=== PATIENT | female | born 1965 | race Caucasian/White ===

== ENCOUNTER 2023-06-27 20:47 | Emergency (ER) | payer OTHER ==
[2023-06-27 21:10] VITALS: BP 148/70
[2023-06-27] MEDS ORDERED: Rabies Vaccine (Avian) 2.5 Unit Inj Kit IM ONE (21:31)
[2023-06-27] MEDS ORDERED: Rabies Immune Globulin/PF (HyperRAB) 300 UNIT/ML 5 ML SDV IM ONE (21:36)
[2023-06-27 22:40] VITALS: PULSE 70
== END 2023-06-27 22:39 | disposition home or self-care (01) ==
LOC: JD.ED 20:47
DX: S71.151S Open bite, right thigh, sequela (principal); Z23 Encounter for immunization; W54.0XXS Bitten by dog, sequela
CPT/HCPCS: 90375; 90471; 90675; 96372; 99282; 99283-25